=== PATIENT | male | born 1950 | race Caucasian/White ===

== ENCOUNTER 2016-10-13 10:12 | Outpatient (CLI) ==
[2016-10-13 12:41] LABS: HEMATOCRIT 45.5 % (42.0-52.0); HEMOGLOBIN 14.8 g/dl (14.0-18.0); MEAN CORPUSCULAR HEMOGLOBIN 27.6 pg (27.0-31.0); MEAN CORPUSCULAR HGB CONC 32.5 (31.8-35.4); MEAN CORPUSCULAR VOLUME 84.7 fl (80.0-94.0); RED BLOOD COUNT 5.37 10^6/ul (4.70-6.10); WHITE BLOOD COUNT 5.98 K/ul (4.2-10.2)
[2016-10-13 12:56] LABS: ANION GAP 16.3; BUN/CREATININE RATIO 10.12; CALCIUM 9.3 mg/dL (8.2-10.2); CREATININE 1.58 mg/dL (0.60-1.10); POTASSIUM 4.3 mmol/L (3.5-5.1)
[2016-10-14 08:12] LABS: URINE CREATININE 78.5 mg/dL (Not Estab.)
[2016-10-15 09:16] LABS: URINE MALB/CR RATIO 4.7 mg/g creat (0.0-30.0)
== END 2016-10-13 10:13 | disposition home or self-care (01) ==
LOC: LAB 10:12
PROVIDERS: ATTEND General Practice
DX: N18.3 Chronic kidney disease, stage 3 (moderate) (principal); R74.8 Abnormal levels of other serum enzymes; R10.9 Unspecified abdominal pain; Z11.59 Encounter for screening for other viral diseases
CPT/HCPCS: 36415; 80048; 80074; 82043; 83970; 85027

== ENCOUNTER 2017-02-24 10:16 | Outpatient (CLI) ==
[2017-02-24 12:45] LABS: BASOPHILS % (AUTO) 0.6 % (0.0-3.0); EOSINOPHILS # (AUTO) 0.1 K/ul (0.0-0.7); EOSINOPHILS % (AUTO) 1.8 % (0.0-7.0); HEMATOCRIT 43.9 % (42.0-52.0); HEMOGLOBIN 14.6 g/dl (14.0-18.0); LYMPHOCYTES # (AUTO) 1.2 K/uL (0.60-3.4); LYMPHOCYTES % (AUTO) 19.1 (10.0-50.0); MEAN CORPUSCULAR HEMOGLOBIN 27.8 pg (27.0-31.0); MEAN CORPUSCULAR HGB CONC 33.3 (31.8-35.4); MEAN CORPUSCULAR VOLUME 83.6 fl (80.0-94.0); MONOCYTES # (AUTO) 0.4 K/uL (0.4-2.0); MONOCYTES % (AUTO) 6.8 (0-10); NEUTROPHILS # (AUTO) 4.4 K/ul (2.0-6.9); NEUTROPHILS % (AUTO) 70.7; PLATELET COUNT 226 10^3/uL (140-440); RED BLOOD COUNT 5.25 10^6/ul (4.70-6.10); WHITE BLOOD COUNT 6.28 K/ul (4.2-10.2)
[2017-02-24 12:54] LABS: ALBUMIN 3.8 g/dL (3.4-5.0); ALBUMIN/GLOBULIN RATIO 1.41; ANION GAP 15.1; BILIRUBIN,TOTAL 0.35 mg/dL (0.00-1.20); BUN/CREATININE RATIO 14.19; CALCIUM 9.2 mg/dL (8.2-10.2); CHOL/HDL RATIO 5.2 (4.5-6.4); CREATININE 1.62 mg/dL (0.60-1.10); POTASSIUM 4.1 mmol/L (3.5-5.1); TOTAL PROTEIN 6.5 g/dL (5.8-8.1)
[2017-02-24 12:57] LABS: ADD URINE MICROSCOPIC NO; BILIRUBIN,URINE Negative (NEGATIVE); KETONES,URINE Negative (NEGATIVE); LEUKOCYTE ESTERASE ,URINE Negative (NEGATIVE); NITRITE,URINE Negative (NEGATIVE); PH,URINE 6.5 (5-9); PROTEIN,URINE Negative (NEGATIVE); URINE, BLOOD Negative (NEGATIVE)
== END 2017-02-24 10:17 | disposition home or self-care (01) ==
LOC: LAB 10:16
PROVIDERS: ATTEND General Practice
DX: E11.9 Type 2 diabetes mellitus without complications (principal); I10 Essential (primary) hypertension; N18.3 Chronic kidney disease, stage 3 (moderate); Z79.899 Other long term (current) drug therapy
CPT/HCPCS: 36415; 80053; 80061; 81001; 85025

== ENCOUNTER 2017-04-20 09:45 | Outpatient (CLI) ==
[2017-04-20 12:45] LABS: HEMATOCRIT 45.2 % (42.0-52.0); MEAN CORPUSCULAR HEMOGLOBIN 27.8 pg (27.0-31.0); MEAN CORPUSCULAR HGB CONC 33.2 (31.8-35.4); MEAN CORPUSCULAR VOLUME 83.7 fl (80.0-94.0); RED BLOOD COUNT 5.4 10^6/ul (4.70-6.10); WHITE BLOOD COUNT 5.42 K/ul (4.2-10.2)
[2017-04-20 12:46] LABS: BILIRUBIN,URINE Negative (NEGATIVE); KETONES,URINE Negative (NEGATIVE); LEUKOCYTE ESTERASE ,URINE Negative (NEGATIVE); NITRITE,URINE Negative (NEGATIVE); PROTEIN,URINE Negative (NEGATIVE); URINE, BLOOD Negative (NEGATIVE)
[2017-04-20 12:48] LABS: ADD URINE MICROSCOPIC NO
[2017-04-20 13:06] LABS: ANION GAP 19.5; BUN/CREATININE RATIO 13.75; CALCIUM 9.3 mg/dL (8.2-10.2); CREATININE 1.89 mg/dL (0.60-1.10); POTASSIUM 4.5 mmol/L (3.5-5.1)
[2017-04-21 04:12] LABS: URINE CREATININE 67.2 mg/dL (Not Estab.)
[2017-04-21 07:10] LABS: URINE MALB/CR RATIO 8.2 mg/g creat (0.0-30.0)
== END 2017-04-20 09:46 | disposition home or self-care (01) ==
LOC: LAB 09:45
PROVIDERS: ATTEND Internal Medicine Nephrology
DX: N18.3 Chronic kidney disease, stage 3 (moderate) (principal)
CPT/HCPCS: 36415; 80048; 81001; 82043; 85027

== ENCOUNTER 2017-11-07 07:16 | Outpatient (CLI) | payer OTHER | END 2017-11-07 07:17 | disposition home or self-care (01) | LOC: LAB 07:16 | PROVIDERS: ATTEND Internal Medicine Nephrology | DX: N18.3 Chronic kidney disease, stage 3 (moderate) (principal) | CPT/HCPCS: 36415; 80048; 82043; 85027 ==

== ENCOUNTER 2017-12-25 14:46 | Outpatient (CLI) | END 2017-12-25 14:47 | disposition home or self-care (01) | LOC: FCC-LAB 14:46 | PROVIDERS: ATTEND General Practice | DX: E11.9 Type 2 diabetes mellitus without complications (principal); I10 Essential (primary) hypertension; N18.3 Chronic kidney disease, stage 3 (moderate); Z12.5 Encounter for screening for malignant neoplasm of prostate; Z79.899 Other long term (current) drug therapy | CPT/HCPCS: 36415; 80053; 80061; 81001; 83036; 85025 ==

== ENCOUNTER 2018-04-30 08:08 | Outpatient (CLI) | END 2018-04-30 08:09 | disposition home or self-care (01) | LOC: LAB 08:08 | PROVIDERS: ATTEND Internal Medicine Nephrology | DX: E11.9 Type 2 diabetes mellitus without complications (principal); I10 Essential (primary) hypertension; N18.3 Chronic kidney disease, stage 3 (moderate); K21.9 Gastro-esophageal reflux disease without esophagitis; Z79.899 Other long term (current) drug therapy | CPT/HCPCS: 36415; 80053; 80061; 81001; 82043; 83036; 85025 ==

== ENCOUNTER 2018-05-03 12:02 | Outpatient (CLI) ==
--- NOTE | 2018-05-03 12:49 | US ---
EXAM: Left lower extremity venous doppler. HISTORY: Left thigh pain. COMPARISON: None available. TECHNIQUE: A duplex Doppler study was performed consisting of integrated two dimensional (2D) real-t carter imaging color flow Doppler and Doppler spectral analysis utilizing linear array probes. FINDINGS: There is normal flow, venous waveforms, compressibility and augmentation of flow within th e left common femoral, greater saphenous, profunda, femoral, popliteal, posterior tibial, anterior ti bial and peroneal veins. IMPRESSION: No evidence for left lower extremity deep vein thrombosis at the levels examined.
== END 2018-05-03 12:03 | disposition home or self-care (01) ==
LOC: RAD 12:02
PROVIDERS: ATTEND General Practice
DX: M79.652 Pain in left thigh (principal)

== ENCOUNTER 2018-11-20 09:24 | Outpatient (CLI) | payer OTHER | END 2018-11-20 09:25 | disposition home or self-care (01) | LOC: LAB 09:24 | PROVIDERS: ATTEND Internal Medicine Nephrology | DX: N18.3 Chronic kidney disease, stage 3 (moderate) (principal) | CPT/HCPCS: 36415; 80048; 82043; 83970; 85027 ==

== ENCOUNTER 2019-02-19 05:23 | Emergency (ER) ==
[2019-02-19 05:29] VITALS: TEMP 98.4; BMI 27.1
--- NOTE | 2019-02-19 05:37 | ED.PDOC ---
General ED Provider: Dr. IZZY GUZMAN-ER Chief Complaint: Chest Pain Stated Complaint: almaz had chest pain since 4am Time Seen by Physician: 05:30 Mode of Arrival: Walk-In Information Source: Patient, Family Exam Limitations: No limitations [facility] Nursing and Triage Documentation Reviewed and Agree: Yes Does patient meet sepsis criteria?: No System Inflammatory Response Syndrome: Not Applicable Sepsis Protocol: For patient's 13 years and over: Temp is 96.8 and below OR 101 and greater Pulse >90 BPM Resp >20/minute Acutely Altered Mental Status Are patient's symptoms suggestive of a new infection, such as: -Pneumonia -Skin, Soft Tissue -Endocarditis -UTI -Bone, Joint Infection -Implantable Device -Acute Abdominal Infection -Wound Infection -Meningitis -Blood Stream Catheter Infection -Unknown Cardiovascular Complaint Exam - Chest Pain Complaint/Exam Onset: Gradual Duration: 4am Symptoms Are: Still present Initial Severity: Mild Current Severity: Mild Location: Reports: Diffuse Pain Radiates: Reports: None Character: Reports: Dull Aggravating: Reports: None Alleviating: Reports: None Associated Signs and Symptoms: Reports: Nausea, Vomiting Related Surgical History: Reports: None History of Healthcare-Acquired Pneumonia: Reports: No AMI/ACS Risk Factors: Reports: Diabetes TAD Risk Factors: Reports: Hypertension Pulmonary Embolism Risk Factors: Reports: None Prior Care for this Complaint: No Recent Stress Test: No Recent Echo/LV Function: No JVD Present: No Subcutaneous Emphysema Present: No If Risk Factors for AMI/ACS Consider: EKG, Cardiac Enzymes Review of Systems - Review Of Systems Constitutional: Reports: No symptoms Eyes: Reports: No symptoms Ears, Nose, Mouth, Throat: Reports: No symptoms Respiratory: Reports: No symptoms Cardiac: Reports: Chest pain GI: Reports: No symptoms : Reports: No symptoms Musculoskeletal: Reports: No symptoms Skin: Reports: No symptoms Neurological: Reports: No symptoms Endocrine: Reports: No symptoms Hematologic/Lymphatic: Reports: No symptoms All Other Systems: Reviewed and Negative Past Medical History - Past Medical History Previously Healthy: No Endocrine: Reports: DM 2 Cardiovascular: Reports: Hypertension Respiratory: Reports: None Hematological: Reports: None Gastrointestinal: Reports: None Genitourinary: Reports: None Neuro/Psych: Reports: None Musculoskeletal: Reports: None Cancer: Reports: None - Surgical History General Surgical History: Reports: Unknown - Family History Family History: Reports: Unknown - Social History Smoking Status: Never smoker Hx Substance Use: No Alcohol Screening: None - Immunizations Tetanus Shot up to Date: Yes Physical Exam - Physical Exam Appearance: Well-appearing, No pain distress, Well-nourished Pain Distress: Moderate Eyes: MANNY, EOMI, Conjunctiva clear ENT: Ears normal, Nose normal, Oropharynx normal Neck: Supple Respiratory: Airway patent, Breath sounds clear, Breath sounds equal, Respirations nonlabored Cardiovascular: RRR, Pulses normal, No rub, No murmur GI/: Soft, Nontender, No masses, Bowel sounds normal, No Organomegaly Musculoskeletal: Normal strength, ROM intact, No edema, No calf tenderness Skin: Warm, Dry, Normal color Neurological: Sensation intact, Motor intact, Reflexes intact, Cranial nerves intact, Alert, Oriented Psychiatric: Affect appropriate, Mood appropriate, Anxious Interpretation - EKG Interpretation Time of EKG #1: 05:37 Rate: Normal Rhythm: Sinus Ectopy: None [place]: NL ST Segment: Other Interpretation: stemi Physician Notification - Case Discussed Physician Notified: [facility] notified 5:40 Critical Care Note - Critical Care Note Total Time (mins): 30 Course - Course Vital Signs: Temp Pulse Resp BP Pulse Ox 02/19/19 05:23 98.4 F 73 20 142/94 H 99 ABEBE Risk Score ABEBE Risk Score: Risk Score Odds of by 30D 0 0.1 (0.1-0.2) 1 0.3 (0.2-0.3) 2 0.4 (0.3-0.5) 3 0.7 (0.6-0.9) 4 1.2 (1.0-1.5) 5 2.2 (1.9-2.6) 6 3.0 (2.5-3.6) 7 4.8 (3.8-6.1) Departure - Departure Time of Disposition: 05:38 Disposition: TSF SHORT-TRM HOSP Discharge Problem: STEMI (ST elevation myocardial infarction) Qualifiers: Involved coronary artery: unspecified coronary artery Qualified Code(s): I21.3 - ST elevation (STEMI) myocardial infarction of unspecified site Instructions: Heart Attack (DC) Condition: Good Pt referred to PMD for follow-up: Yes IPMP verified?: No Allergies/Adverse Reactions: Allergies No Known Allergies Allergy (Unverified 05/03/18 11:23) Home Medications: Ambulatory Orders Asa 81 DAILY 05/11/15 Cholecalciferol (Vitamin D3) [Vitamin D] 1,000 unit PO DAILY 05/11/15 [place]-3 Fatty Acids/Fish Oil [Fish Oil 1,200 Mg Softgel] 1 each PO BID 05/11/15 Sildenafil Citrate [Viagra] 100 mg PO PRN 05/11/15 Beta-Carotene(A)-Vits C,E/Mins [Vision Vitamins] 1 each PO DAILY PRN #1 tab-cap 02/26/17 Calcium Carbonate/Vitamin D3 [Calcium 600-Vit D3 200 Tablet] 1 each PO DAILY #1 tab-cap 02/26/17 Ubidecarenone/Vitamin E Mixed [Kap11-Bis E 100 Mg-10 Unit Sfg] 1 each PO DAILY # 90 tab-cap 05/03/18 Transfer Form Completed: Yes Disposition Discussed With: Patient, Family
[2019-02-19] MEDS ORDERED: NITROSTAT SL ONE (05:44)
[2019-02-19] MEDS ORDERED: ZOFRAN 4 MG/2 ML IVP STA (05:45)
[2019-02-19] MEDS ORDERED: NITROSTAT SL STA (05:45)
[2019-02-19] MEDS ORDERED: ZOFRAN 4 MG/2 ML ONE (05:48)
[2019-02-19 06:35] VITALS: BP 141/112
== END 2019-02-19 05:50 | disposition short-term general hospital (02) ==
LOC: ED 05:23
DX: I21.3 ST elevation (STEMI) myocardial infarction of unspecified site (principal); I10 Essential (primary) hypertension; E11.9 Type 2 diabetes mellitus without complications; Z79.899 Other long term (current) drug therapy
CPT/HCPCS: 36415; 80053; 82550; 82553; 84484; 85025; 93005; 93010; 96374; 99285

== ENCOUNTER 2019-02-19 05:47 | Outpatient (CLI) ==
[2019-02-19 05:29] VITALS: BMI 27.1
== END 2019-02-19 05:48 | disposition home or self-care (01) ==
LOC: AMBL 05:47
PROVIDERS: ATTEND Family Medicine
DX: I21.09 ST elevation (STEMI) myocardial infarction involving other coronary artery of anterior wall (principal); R20.0 Anesthesia of skin; R10.13 Epigastric pain; R11.0 Nausea; R51 Headache

== ENCOUNTER 2019-05-26 08:11 | Outpatient (CLI) | payer OTHER | END 2019-05-26 08:12 | disposition home or self-care (01) | LOC: LAB 08:11 | PROVIDERS: ATTEND Internal Medicine Nephrology | DX: N18.3 Chronic kidney disease, stage 3 (moderate) (principal); E11.9 Type 2 diabetes mellitus without complications; I10 Essential (primary) hypertension; K21.9 Gastro-esophageal reflux disease without esophagitis; Z79.899 Other long term (current) drug therapy | CPT/HCPCS: 36415; 80053; 80061; 81001; 82306; 83036; 83970; 85025 ==